=== PATIENT | male | born 1990 | race Hispanic/Latino ===

== ENCOUNTER 2020-04-29 01:44 | Emergency (ER) | payer SELFPAY ==
[2020-04-29] MEDS ORDERED: TETANUS/DIPHTHERIA TOXOID [ADULT] 0.5 ML VIAL IM ONE (02:02)
[2020-04-29] MEDS ORDERED: LIDOCAINE HCL 1% 20 ML VIAL ONE (02:45)
== END 2020-04-29 03:23 | disposition home or self-care (01) ==
LOC: EDH 01:44
DX: S01.511A Laceration without foreign body of lip, initial encounter (principal); Z88.0 Allergy status to penicillin; Z72.0 Tobacco use; W54.0XXA Bitten by dog, initial encounter; Y93.89 Activity, other specified; Y92.098 Other place in other non-institutional residence as the place of occurrence of the external cause; Y99.8 Other external cause status